=== PATIENT | female | born 1940 | race Caucasian/White ===

== ENCOUNTER 2016-07-02 03:47 | Inpatient (IN) | payer OTHER ==
[~2016-07-02] VITALS: Ht 152.4 cm; Wt 57.6 kg
[~2016-07-02 03:47] MED LIST: COZAAR50 M1 PO; SYNTHROID50 MCG PO
[2016-07-02] MEDS ORDERED: CALTRATE 600 +1 EACH PO (07:00)
[2016-07-02] MEDS ORDERED: OSTEO BI-FLEX1 EACH PO (07:01)
--- NOTE | 2016-07-02 11:08 | Admission Core Measures ---
Admission Meds I reviewed the following Meds: Current Medications Sig/Luz Start time Last Medication Dose Stop Time Status Admin Acetaminophen 975 MG ONCE 07/02 0000 NR (Tylenol) 07/02 2358 Cefazolin Sodium 2,000 MG ONCE 07/02 NR (Kefzol-Ancef Inj) 07/02 2358 Levothyroxine Sodium 0.05 MG DAILY AC 07/02 1000 AC (Synthroid) Losartan Potassium 50 MG DAILY 07/02 1000 AC (Cozaar) Oxycodone HCl 10 MG ONCE 07/02 0000 NR (Roxicodone) 07/02 2358 Acute Coronary Syndrome Inclusion Criteria ACS Diagnosis No Inpatient Core Measures LDL Reminder: If No, please order W/I first 24hr of stay Congestive Heart Failure Inclusion Criteria CHF Diagnosis No Cerebrovascular accident Inclusion Criteria CVA/TIA Diagnosis No Inpatient Core Measures Bedside Swallow Eval Reminder: If BSE failed, place ST order Antithrombotic Reminder: Order Antithrombotic Medication by end of day 2 Antithrombotic Reminder: Document Reason Antithrombotic Not ordered by end of day 2 AFIB/Flutter Reminder: If Present, add to problem list AFIB/Flutter Reminder: Order Anticoag Medication for pts with AFIB/Flutter Atherosclerosis Reminder: If Present, add to problem list LDL Reminder: If No, please order W/I first 24hr of stay PT Order Reminder: If No, please order Venous thromboembolism Inpatient Core Measures VTE Risk Factors: Age > 40, Surgery No [facility] VTE prophylaxis d/t No contraindications No VTE Pharm Prophylaxis d/t No contraindications Inclusion Criteria - Per Current guidelines, there needs to be overlap - treatment for the first 5 days of Warfarin therapy. - Parenteral Anticoagulation (IV or SC) needs to be - given along with Warfarin therapy. VTE Diagnosis No VTE Type NONE VTE Confirmed by (Test) NONE Problem List As ranked by this Provider includes Assessment & Plan 1. Unilateral primary osteoarthritis, right hip HOME MEDS Home Med List Calcium Carbonate/Vitamin D3 (Caltrate 600 + D Tablet) 600 MG-800 TABLET 1 TAB PO BID SUPP (Reported) Glucosamine HCl/Chondr Ruiz A Na (Osteo Bi-Flex Caplet) 250 MG-200 MG TABLET 2 PO D SUPP (Reported) Levothyroxine Sodium (Synthroid) 50 MCG TABLET 1 TAB PO DAILY THYROID ( Reported) Losartan Potassium (Cozaar) 50 MG TABLET 1 TAB PO DAILY BP (Reported)
[2016-07-02] MEDS ORDERED: MS CONTIN15 M2 PO (11:09)
[2016-07-02] MEDS ORDERED: COLACE100 M1 PO (11:09)
[2016-07-02] MEDS ORDERED: MIRALAX17 G1 PO (11:09)
[2016-07-02] MEDS ORDERED: PRILOSEC OTC20 M1 PO (11:09)
[2016-07-02] MEDS ORDERED: ASPIRIN EC325 M2 PO (11:09)
[2016-07-02] MEDS ORDERED: DILAUDID2 M1 PO (11:09)
--- NOTE | 2016-07-02 11:20 | Patient Discharge Instructions ---
Discharge Instructions General Discharge Information You were seen/treated for: Right hip pain You had these procedures: Right total hip replacement Watch for these problems: Increasing pain despite the use of pain medication. Increasing redness, warmth, and swelling. Drainage of any type from incision. Inability to bear weight on right leg. Do not soak the wound: Yes No bath, but you may shower: Yes Other wound care: Keep wound clean and dry. Daily dry dressing changes. First dressing change post operative day 2. No ointment of any type on or near incision. No exceptions. Special Instructions: Aspirin: Please take this as directed for a minimum of 3-4 weeks. Its purpose is to offer protection against the development of blood clots. Please take with food to protect the lining of your stomach. Colace/Miralax: Please take these medications as directed to help prevent constipation which is common when taking pain medications. Diet Continue normal diet: Yes Recommended Diet: Regular Additional DIET Information: Advance as tolerated Activity Full Activity/No Limits: No Activity Self Limited: Yes Pounds, do NOT lift more than: 10 Additional ACTIVITY Info: weigth bear as tolerated on right hip Acute Coronary Syndrome Inclusion Criteria At DC or during hospital stay patient has or had the following: ACS DIAGNOSIS No Discharge Core Measures Meds if any: Prescribed or Continued at Discharge Meds if any: NOT Prescribed or Continued at Discharge Congestive Heart Failure Inclusion Criteria At DC or during hospital stay patient has or had the following: CHF DIAGNOSIS No Discharge Core Measures Meds if any: Prescribed or Continued at Discharge Meds if any: NOT Prescribed or Continued at Discharge Cerebrovascular accident Inclusion Criteria At DC or during hospital stay patient has or had the following: CVA/TIA Diagnosis No Discharge Core Measures Meds if any: Prescribed or Continued at Discharge Meds if any: NOT Prescribed or Continued at Discharge Venous thromboembolism Inclusion Criteria VTE Diagnosis No VTE Type NONE VTE Confirmed by (Test) NONE Discharge Core Measures - Per Current guidelines, there needs to be overlap - treatment for the first 5 days of Warfarin therapy. - If discharged on Warfarin prior to 5 days of - overlap therapy, the patient will need to be - assessed for post discharge needs including - *Post discharge parental anticoagulation - *Warfarin and/or parental anticoagulation education - *Follow up date to check INR post discharge At least 5 days overlap therapy as Inpatient No Meds if any: Prescribed or Continued at Discharge Note: Overlap Therapy is Warfarin and Anticoagulant Meds if any: NOT Prescribed or Continued at Discharge
--- NOTE | 2016-07-02 11:24 | Surgical Discharge Summary ---
Visit Information Visit Dates Admission Date: 07/02/16 Discharge Date: 07/03/16 History of Present Illness Chief Complaint: right hip pain secondary to primary unilateral osteoarthritis Medical History Isolation History: Standard Surgical History Pertinent Surgical History: non-contributory Review of Systems: See H&P Hospital Course Course Attending Physician: WILLIS GIRON MD Primary Care Physician: NEERU PABLO MD Hospital Course: Giovanna was admitted to the hospital on 07/02/2016 for an elective right total hip replacement. She tolerated the procedure well and was transferred to a general surgical floor. Her vital signs remained stable and within normal limits. Her neurovascular status remained intact. She voided spontaneously. Her diet was advanced and toelrated. Her pain was well controlled with the use of oral pain medications. She was evaluated and treated by physical therapy. She was deemed appropriate for discharge. Allergies: Coded Allergies: No Known Allergies (06/28/16) Disposition Summary Disposition Principal Diagnosis: Right hip unilateral primary osteoarthritis Additional Diagnosis: none Discharge Disposition: home health services Discharge Instructions General Discharge Information Code Status: Full Code Patient's Diet: regular, advance as tolerated Patient's Activity: weight bear as tolerated on right leg Follow-Up Instructions/Appts: 6 week follow up appointment in office, call to confirm or arrange. Medications at Discharge Discharge Medications: Continue taking these medications: Losartan Potassium (Cozaar) 50 MG TABLET 1 Tablet ORAL DAILY Comments: Last Taken:07/03/16 Time:0910 Levothyroxine Sodium (Synthroid) 50 MCG TABLET 1 Tablet ORAL DAILY Comments: Last Taken:07/03/16 Time:0610 Calcium Carbonate/Vitamin D3 (Caltrate 600 + D Tablet) 600 MG-800 TABLET 1 Tablet ORAL TWICE DAILY Comments: Last Taken:NOT TAKEN IN HOSPITAL Time: Glucosamine HCl/Chondr Ruiz A Na (Osteo Bi-Flex Caplet) 250 MG-200 MG TABLET 2 ORAL Every Day Comments: Last Taken:NOT TAKEN IN HOSPITAL Time: Start taking the following new medications: Aspirin (Ecotrin*) 325 MG TABLET.DR 1 Tablet ORAL TWICE DAILY Qty = 60 No Refills Comments: Last Taken:07/03/16 Time:0910 Docusate Sodium (Colace) 100 MG CAPSULE 1 Capsule ORAL TWICE DAILY Qty = 14 No Refills Instructions: DISCONTINUE USE IF YOU DEVELOP LOOSE STOOL OR DIARRHEA Comments: Last Taken:07/03/16 Time:0910 Hydromorphone HCl (Dilaudid) 2 MG TABLET 1-2 Tablet ORAL EVERY 4-6 HOURS as needed for PAIN Qty = 36 No Refills Comments: Last Taken:07/03/16 Time:909 Polyethylene Glycol 3350 (Miralax) 17 GRAM POWD.PACK 1 Packet ORAL DAILY Qty = 7 No Refills Instructions: dissolve in water, DISCONTINUE USE IF YOU DEVELOP LOOSE STOOL OR DIARRHEA Comments: Last Taken:07/03/16 Time:909 Morphine Sulfate (Ms Contin) 15 MG TABLET.ER 1 Tablet ORAL TWICE DAILY Qty = 2 No Refills Comments: Last Taken:WAS NOT ORDERED NEW MEDICATION Time: Omeprazole Magnesium (Prilosec Otc) 20 MG TABLET.DR 1 Tablet ORAL DAILY Qty = 30 No Refills Comments: Last Taken:07/03/16 Time:0610
--- NOTE | 2016-07-02 11:29 | RADIOLOGY REPORT ---
EXAMINATION: XR HIP, RIGHT CLINICAL INFORMATION: Status post right total knee replacement COMPARISON: None TECHNIQUE: AP and crosstable lateral views of the right hip. FINDINGS: Prosthetic components of the right total hip arthroplasty are appropriately aligned. No periprosthetic fracture. Gas from recent surgery is present in the surrounding soft tissues. IMPRESSION: Normal postoperative appearance of the right total hip prosthesis.
[2016-07-02 12:10] VITALS: BP 102/70
--- NOTE | 2016-07-02 12:10 | NUR ---
PT ARRIVED FROM PACU A/OX3. RA. BOLA W RW AND AX1, AMBULATED FROM STRETCHER TO BED WITH PHYSICAL THERAPY. PT DENIES NUMBNESS OR TINGLING. ABLE TO FEEL TOUCH TO BLE. ABLE TO WIGGLE LOURDES AND FLEX FEET. +CMS. DENIES PAIN. SITTING UP IN CHAIR WITH BLE ELEVATED. IV TO LH, IV FLUIDS RUNNING. AT BEDSIDE. PT CALM, COOPERATIVE, ALERT. WILL MONITOR.
--- NOTE | 2016-07-02 12:54 | PN- Orthopedic ---
Subjective Subjective: The patient was seen this afternoon postoperatively. She reports that her pain is under adequate control and has no other complaints at the current time. Objective Vital Signs and I&Os Vital signs: Blood pressure 130/70, pulse 75, temperature 97.7, O2 saturation 98 % on room air I's and O's: 2100 ML's in of lactated Ringer's/voided 380 ML's/EBL 150 Physical Exam: Gen.: Alert and in no obvious distress Skin: Warm and dry Cardiac: S1 and S2 regular Pulmonary: Bilateral breath sounds are equal with good exchange Extremities: Bilateral lower extremities are warm without calf tenderness or significant edema. Gross motor and sensory were intact. Right hip surgical dressing is clean, dry, and intact. Assessment/Plan Assessment/Plan Assessment: 76-year-old female status post right total hip arthroplasty. Postoperative the patient is progressing as expected and her pain is under adequate control. Plan: Out of bed with physical therapy patient is weightbearing as tolerated Hep-Lock IV fluids Continue current pain regiment GI and DVT prophylaxis Start aspirin 325 mg by mouth twice a day first dose today 2 doses of postoperative prophylactic antibiotics Resume home medications Strict I's and O's Incentive spirometry Core Measures/Miscellaneous Venous Thromboembolism VTE Risk Factors: Age > 40, Surgery VTE Contraindications: No Contraindications VTE Diagnosis: No VTE Type: NONE VTE Confirmed by (Test): NONE Beta Raissa Is Beta Raissa a Home Med? No Antibiotics Is Patient on Antibiotics? Yes If Yes: prophylaxis
[2016-07-02 14:34] VITALS: BP 116/60
--- NOTE | 2016-07-02 15:44 | Operative Report ---
Operative/Inv Procedure Report Surgery Date: 07/02/16 Name of Procedure: Right total hip replacement Pre-Operative Diagnosis: Primary right hip DJD Post-Operative Diagnosis: Same Estimated Blood Loss: 300 Surgeon/Web Consultant: BREE RAY,WILLIS Haynes Anesthesia: block Operative/Procedure Note Note: Description of Procedure: The patient was taken to the operating room and positively identified. After induction of spinal anesthesia and administration of appropriate pre-operative antibiotics, the patient was positioned supine on the operating room table and all bony prominences were well padded. After performing a surgical timeout, the right lower extremity was prepped and draped in the usual sterile fashion. A direct anterior approach was made to the right hip. The incision was carried sharply through superficial soft tissues to the level of the fascia. Meticulous hemostasis was maintained with Bovie electocautery. The fascia over the tensor fascia ezio muscle was opened sharply and the interval between the TFL and the sartorius was entered bluntly taking care to stay lateral to the lateral femoral cutaneous nerve. Retractors were placed around the femoral neck and the pericapsular fat was identified. The ascending branches of the lateral femoral circumflex vessels were identified and carefully coagulated. The pericapsular fat and anterior capsule were then resected. A napkin ring osteotomy was performed and the femoral head was removed without difficulty. Attention was then turned to the acetabulum. After appropriate placement of retractors, the acetabulum was exposed. Soft tissue was cleaned from the acetabular margin and notch. Overhanging osteophytes were removed and the teardrop was exposed. The acetabulum was then sequentially reamed to accept a 52 mm Yahaira Tritanium hemispherical solid back shell. This was impacted into place in the appropriate position and fitted with a 32 mm Trident X3 zero degree polyethylene insert. Attention was then turned to the femur. After performing the appropriate ligament releases, the proximal femur was exposed. It was then sequentially broached to accept a size 2 [place] Accolade 2 stem. This was trialed for leg length and stability. The trial component was removed and the final component was impacted into place. The trunnion was carefully cleaned and fit with a 32 mm, +0 Biolox delta ceramic femoral head. The hip was reduced and put through a full range of motion and found to be stable. The articular space was then irrigated with sterile saline. The periarticular soft tissues were infilitrated with Marcaine. The fascial layer was closed with interrupted #1 vicryl suture and the skin was re-approximated with interrupted 2 -0 vicryl. The skin was closed with a running 3-0 V-Lock suture. Steri-strips and a sterile dressing were applied. The patient was awakened and taken to the recovery room in satisfactory condition.
[2016-07-02 16:16] VITALS: BP 116/54
[2016-07-02 17:57] VITALS: BP 118/58
[2016-07-02 22:35] VITALS: BP 124/60
[2016-07-03 01:02] VITALS: BP 126/68
[2016-07-03 06:00] VITALS: BP 132/68
--- NOTE | 2016-07-03 07:58 | PN- Orthopedic ---
Subjective Subjective: The patient was seen this morning postoperatively day 1. She reports some minor discomfort at the surgical site was otherwise comfortable. Chest no complaints at the current time is eager to work with physical therapy. Objective Vital Signs and I&Os Vital Signs Date Time Temp Pulse Resp B/P B/P Pulse O2 O2 Flow FiO2 Mean Ox Delivery Rate 07/03 06 98.5 80 18 132/68 98 Room Air 07/03 0102 97.9 83 18 126/68 98 Room Air 07/02 2235 98.4 81 20 124/60 95 Room Air 07/02 1757 98.7 84 20 118/58 97 Room Air 07/02 1616 98.1 88 18 116/54 100 Room Air 07/02 1434 97.6 87 20 116/60 95 Room Air 07/02 1210 97.4 66 18 102/70 99 Room Air Intake & Output 07/03 0800 07/03 0000 07/02 1600 07/02 0800 07/02 0000 07/01 1600 Intake Total 400 1025 Output Total 1050 400 300 Balance -1050 0 725 Intake, IV 300 225 Intake, Oral 100 800 Number 0 0 Bowel Movements Output, Urine 1050 400 300 Patient 127 lb Weight Weight Reported by Patient Measurement Method Physical Exam: Gen.: Alert and in no obvious distress Skin: Warm and dry Extremities: Bilateral lower extremities are warm without calf tenderness or significant edema. Gross motor and sensory are intact. Right hip surgical dressing is clean, dry, and intact. Assessment/Plan Assessment/Plan Assessment: 76-year-old female status post right total hip arthroplasty postoperative day #1. The patient is progressing as expected and her pain is under adequate control. Plan: Out of bed with physical therapy Hep-Lock IV fluids Follow-up morning laboratory studies GI and DVT prophylaxis Continue current pain regiment Discharge home later today if goals met Core Measures/Miscellaneous Venous Thromboembolism VTE Risk Factors: Age > 40, Surgery VTE Contraindications: No Contraindications VTE Diagnosis: No VTE Type: NONE VTE Confirmed by (Test): NONE Beta Raissa Is Beta Raissa a Home Med? No Antibiotics Is Patient on Antibiotics? Yes If Yes: prophylaxis
[2016-07-03 08:03] LABS: ABSOLUTE BASOPHIL COUNT 0 /CUMM (0.0-0.2); ABSOLUTE EOSINOPHIL COUNT 0 /CUMM (0.0-0.7); ABSOLUTE GRANULOCYTE CT 5.3 /CUMM (1.4-6.5); ABSOLUTE LYMPH COUNT 2.3 /CUMM (1.2-3.4); ABSOLUTE MONOCYTE COUNT 0.6 /CUMM (0.10-0.60); BASOPHIL % 0.1 % (0.0-2.0); EOSINOPHIL % 0.6 % (0-5); GRANULOCYTE % 64.3 % (42.2-75.2); HEMATOCRIT 30.4 % (37-47); MEAN CORPUSCULAR HGB 27.1 PG (27.0-31.0); MEAN CORPUSCULAR VOLUME 81.9 FL (81.0-99.0); MEAN PLATELET VOLUME 8.5 FL (7.4-10.4); PLATELET COUNT 204 /CUMM (130-400); RBC DISTRIBUTION WIDTH 14.9 % (11.5-14.5); RED BLOOD CELL CT 3.72 /CUMM (4.20-5.40); WHITE BLOOD CELL COUNT 8.3 /CUMM (4.8-10.8)
[2016-07-03 09:30] VITALS: BP 132/62
== END 2016-07-03 13:30 | disposition home health service (06) | DRG 470 ==
LOC: SDA 03:47 → ENRESERV 11:01 → CANRESERV 11:01 → ENRESERV 11:08 → 2NA 11:55 → ENPENDDIS 07-03 08:09 → 2NA 07-03 13:30
PROVIDERS: Nurse Practitioner; ADMIT Orthopaedic Surgery
PROC: 0SR904A Replacement of Right Hip Joint with Ceramic on Polyethylene Synthetic Substitute, Uncemented, Open Approach (ICD-10-PCS; principal; 2016-07-02)
DX: M16.11 Unilateral primary osteoarthritis, right hip (principal); I10 Essential (primary) hypertension; E78.5 Hyperlipidemia, unspecified; E03.9 Hypothyroidism, unspecified
CPT/HCPCS: 2NAP; 73502-RT; 82436; 87086; 88304; 97110-GO; 97116-GO; 97161-GP; 97530-GO; J0131; J0690; J0735; J1100; J2405; J2550; J7042